=== PATIENT | male | born 1990 | race Caucasian/White ===

== ENCOUNTER 2016-11-13 02:35 | Emergency (ER) | payer MEDICAID ==
[2016-11-13] MEDS ORDERED: BISACODYL EC 5 MG TAB PO PRN (05:00)
[2016-11-13] MEDS ORDERED: SALINE FLUSH 10 ML FLUSH PRN (05:00)
[2016-11-13] MEDS ORDERED: BISACODYL 10 MG SUPP RECTAL PRN (05:00)
[2016-11-13] MEDS ORDERED: ALU/MAG/SIM 30 ML UDC PO PRN (05:00)
[2016-11-13] MEDS ORDERED: MAG HYDROX 30 ML UDC PO PRN (05:00)
[2016-11-13] MEDS ORDERED: SODIUM CHLORIDE 0.9% FLUSH BAG 500 ML IV SCH (06:00)
[2016-11-13] MEDS ORDERED: SALINE FLUSH 10 ML FLUSH SCH (08:00)
== END 2016-11-13 05:25 | disposition left against medical advice (07) ==
LOC: CANRESERV → ENRESERVTM → ENRESERVDT → ENRESERV → ER 02:35 → EMR 04:51 → UNDOADMOB 04:51 → ER 05:25
DX: I48.91 Unspecified atrial fibrillation (principal); F12.10 Cannabis abuse, uncomplicated; F17.210 Nicotine dependence, cigarettes, uncomplicated
CPT/HCPCS: 71010; 80053; 80307; 80320; 81001; 82550; 82553; 84439; 84443; 84484; 85025; 85610; 85730; 87088; 93005; 99219